=== PATIENT | female | born 1950 | race Caucasian/White ===

== ENCOUNTER 2023-11-20 10:47 | Outpatient (CLI) | payer MEDICARE, SELFPAY ==
--- NOTE | ~2023-11-20 | XR_ITS ---
EXAMINATION: XR lumbar spine 2-3V DATE: 11/20/2023 11:11 INDICATION: Lumbar radiculopathy. Pain under right buttock. TECHNIQUE: 3 views of lumbar spine were obtained. COMPARISON: None. FINDINGS: There is 4 degrees levocurvature of lumbar spine. Vertebral body heights are normal. There is mildly decreased disc height at L4-L5. There are endplate osteophytes at all levels. 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 IMPRESSION: 1. Mild lumbar spondylosis. Reviewed, dictated and finalized at location A. IMPRESSION: 1. Mild lumbar spondylosis.
== END 2023-11-20 10:48 | disposition home or self-care (01) ==
PROVIDERS: PCP Internal Medicine; Visit Provider Anesthesiology
DX: M54.16 Radiculopathy, lumbar region (principal); M43.06 Spondylolysis, lumbar region
CPT/HCPCS: 72100

== ENCOUNTER 2023-12-06 10:31 | Outpatient (CLI) | payer MEDICARE, SELFPAY ==
--- NOTE | ~2023-12-06 | MR_ITS ---
MRI of the lumbar spine Clinical History: Back pain Technique: Axial T2-weighted images, and sagittal T1-weighted, T2-weighted, and and T2 fat-sat images were acquired. Findings: There is no fracture of the lumbar spine. There is minimal grade 1 anterolisthesis of L4 ov er L5. No suspicious bone marrow signal abnormality seen. At L1-L2, there is no disc bulge or herniation. There is mild to moderate facet arthropathy. No centr al canal stenosis or neural foraminal narrowing. At L2-L3, there is no disc bulge or herniation. There is mild to moderate facet arthropathy. No centr al canal stenosis or neural foraminal narrowing. At L3-L4, there is mild disc bulge and mild to moderate facet arthropathy. No central canal stenosis or neural foraminal narrowing. At L4-L5, there is disc bulge/uncovering with moderate to advanced facet arthropathy. No central elver l stenosis. There is moderate right neural foraminal narrowing. Left neural foramen preserved. At L5-S1, there is minimal disc bulge. No central canal stenosis or definite neural foraminal narrowi ng. Paravertebral soft tissues are unremarkable. Impression: Mild degenerative spondylosis, as above. Reviewed, dictated and finalized at location . Impression: Mild degenerative spondylosis, as above.
== END 2023-12-06 10:32 | disposition home or self-care (01) ==
LOC: CHSIMG 10:33
PROVIDERS: PCP Internal Medicine; Visit Provider Anesthesiology
DX: M54.16 Radiculopathy, lumbar region (principal); M43.04 Spondylolysis, thoracic region
CPT/HCPCS: 72148

== ENCOUNTER 2024-04-06 11:46 | Outpatient (CLI) | payer MEDICARE, SELFPAY | END 2024-04-06 11:47 | disposition home or self-care (01) | LOC: CHSLAB 11:50 | PROVIDERS: PCP Internal Medicine; Visit Provider Specialist | DX: C44.321 Squamous cell carcinoma of skin of nose (principal) | CPT/HCPCS: 88305 ==